=== PATIENT | male | born 1970 | race Caucasian/White ===

== ENCOUNTER 2019-05-27 11:54 | Emergency (ER) | payer OTHER ==
[~2019-05-27] VITALS: Ht 182.9 cm; Wt 109.1 kg
[2019-05-27 12:06] VITALS: BP 124/79
[2019-05-27] MEDS ORDERED: ZITHROMAX Z PA250 MG PO (14:17)
[2019-05-27] MEDS ORDERED: PREDNISONE20 MG PO (14:17)
[2019-05-27 14:19] VITALS: PULSE 87; TEMP 98.4
== END 2019-05-27 14:19 | disposition home or self-care (01) ==
LOC: COL.ER 11:54
DX: J40 Bronchitis, not specified as acute or chronic (principal); F41.9 Anxiety disorder, unspecified; Z90.49 Acquired absence of other specified parts of digestive tract; Z90.89 Acquired absence of other organs; Z98.52 Vasectomy status